=== PATIENT | male | born 1970 | race Caucasian/White ===

== ENCOUNTER 2017-11-23 09:41 | Inpatient (IN) | payer OTHER ==
[2017-11-22 12:08] VITALS: BMI 32.1
[2017-11-23] MEDS ORDERED: Levofloxacin 500 mg/D5W 100 ml Premix Bag ONE (09:57)
[2017-11-23] MEDS ORDERED: Clindamycin/D5W 900 mg/50 ml Premix Bag ONE (09:57)
[2017-11-23] MEDS ORDERED: Sodium Chloride 0.9% 10 ML ONE (09:59)
[2017-11-23] MEDS ORDERED: Bacitracin Zinc Ointment 30 gm TUBE ONE (09:59)
[2017-11-23] MEDS ORDERED: Thrombin 5000 UNITS/5 ML VIAL ONE ×2 (09:59→13:33)
[2017-11-23 10:20] LABS: #Basophils 0.1 thou/uL (0.0-0.2); #Eosinphils 0.4 thou/uL (0.0-0.7); #Lymphocytes 2.6 thou/uL (1.20-3.40); #Monocytes 0.8 thou/uL (0.11-0.59); #Neutrophils 4.9 thou/uL (1.40-6.50); %Basophils 1.3 % (0.0-1.0); %Eosinophils 4.2 % (0.0-10.0); %Monocytes 8.6 % (0.0-10.0); %Neutrophils 55.9 % (42.0-75.0); Mean Corpuscular HGB CONC 35.3 g/dL (32.0-36.0); Mean Corpuscular Hemoglobin 33.7 pg (27.0-31.0); Mean Corpuscular Volume 95.3 fL (78.0-98.0); Mean Platelet Volume 7.1 fL (7.4-10.4); Platelet Count 287 thou/uL (130-400); Red Blood Cell (RBC) Count 4.75 mill/uL (4.70-6.10); White Blood Cell (WBC) Count 8.8 thou/uL (4.8-10.8)
[2017-11-23 10:28] LABS: PTT 29.2 SEC (22.9-36.1)
[2017-11-23 10:40] LABS: Anion Gap 13 mmol/L (10-20); BUN (Urea Nitrogen) 9 mg/dL (8.9-20.6); Calc. Creatinine Clearance 140 mL/min (70-130); Calcium 9.2 mg/dL (7.8-10.44); Carbon Dioxide 23 mmol/L (22-29); Chloride 106 mmol/L (98-107); Estimated GFR-MDRD 88; Glucose 96 mg/dL (70-105); Potassium 4.1 mmol/L (3.5-5.1); Sodium 138 mmol/L (136-145)
[2017-11-23] MEDS ORDERED: Fentanyl 100 MCG/2 ML VIAL ONE ×6 (10:52→16:14)
[2017-11-23] MEDS ORDERED: HYDROmorphone 0.5 MG/0.5 ML SYRINGE ONE ×2 (11:07→16:27)
[2017-11-23] MEDS ORDERED: PROPOFOL 200 MG/20 ML VIAL ONE (12:17)
[2017-11-23] MEDS ORDERED: Dexamethasone 20 MG/5 ML VIAL ONE (12:17)
[2017-11-23] MEDS ORDERED: Lidocaine 1% PF 5 ML VIAL ONE (12:17)
[2017-11-23] MEDS ORDERED: Vecuronium 10 MG VIAL ONE ×2 (12:17→13:32)
[2017-11-23] MEDS ORDERED: Ondansetron HCl/PF 4 MG/2 ML Vial ONE (12:17)
[2017-11-23] MEDS ORDERED: Glycopyrrolate 0.2 MG/ML 5 ML SYRINGE ONE (12:17)
[2017-11-23] MEDS ORDERED: ePHEDrine/0.9% NaCl/PF SYRINGE 50 mg/10 ml ONE (12:17)
[2017-11-23] MEDS ORDERED: Milk Of Magnesia 30 ML UDCUP PO PRN (15:04)
[2017-11-23] MEDS ORDERED: Fleet Enema 133 ML BOT PR PRN (15:04)
[2017-11-23] MEDS ORDERED: Promethazine HCl 25 MG/ML VIAL IM PRN ×2 (15:04→15:49)
[2017-11-23] MEDS ORDERED: Acetaminophen/Codeine 30-300mg Tablet PO PRN (15:04)
[2017-11-23] MEDS ORDERED: Bisacodyl 10 MG SUPP PR PRN (15:04)
[2017-11-23] MEDS ORDERED: Acetaminophen 325 MG TAB PO PRN (15:04)
[2017-11-23] MEDS ORDERED: Promethazine HCl 25 MG/ML VIAL SLOW IVP PRN (15:49)
[2017-11-23] MEDS ORDERED: Ondansetron HCl/PF 4 MG/2 ML Vial IVP PRN (15:49)
[2017-11-23] MEDS: tiZANidine HCl 4 MG TAB PO PRN (17:51)
[2017-11-23] MEDS: HYDROcodone/Acetaminophen 7.5/325 mg Tablet PO PRN ×2 (17:52→22:36)
[2017-11-23] MEDS: Clindamycin/D5W 900 MG in Premix Bag 1 BAG IVPB SCH (19:14)
[2017-11-23] MEDS: Sodium Chloride 0.9% 1,000 ML IV SCH (19:36)
[2017-11-23] MEDS ORDERED: Nortriptyline 10 MG CAP PO SCH (21:00)
[2017-11-23] MEDS: traMADol HCl 50 MG TAB PO PRN (21:17)
--- NOTE | 2017-11-23 21:18 | OP ---
SURGEON: Akbar Oconnor M.D. VENDOR REPRESENTATIVES: Jus Sparks PA-C OR: 12. WOUND: Type 1 wound. PREPROCEDURE DIAGNOSES: L5-S1 spondylolisthesis with L5 spondylolysis, bilateral L5 radiculopathy. POSTPROCEDURE DIAGNOSES: L5-S1 spondylolisthesis with L5 spondylolysis, bilateral L5 radiculopathy. PROCEDURE: 1. L5-S1 laminectomy for decompression of the common dural tube and the L5 and S1 nerve roots bilate rally. 2. Interbody fusion with left-sided facetectomy for diskectomy and placement of an interbody spacer packed with graft and BMP (transforaminal interbody fusion). 3. Placement of screw katelyn fixation L5-S1 bilaterally. 4. Posterior lateral fusion, right side L5-S1 posterolaterally for lumbar spine fusion. PROCEDURE IN DETAIL: After informed consent was obtained from the patient, the patient brought to OR 12. Proper patient pause and indications carried out. He was placed under excellent general endotr acheal anesthesia and positioned prone on the OR table. All appropriate points were padded. We iden tified through a midline lumbar incision an approach would allow for L5-S1 exposure. A midline linea r kiki was made following sterile cleansing, preparation and draping and the L5-S1 segments were expo sed and again this L5-S1. A localization film confirmed our area of interest following exposure and L5-S1 laminectomy, partial facetectomy, and foraminotomies were performed. However, in the left side , I did a transforaminal lumbar interbody approach with laminectomy and facetectomy and a diskectomy for preparation of the endplates and interbody spacer appropriate dimension was placed with BMP and g raft and I was satisfied with the correction of her spondylolisthesis. I then turned our attention t o placement of screw katelyn fixation L5-S1 bilaterally. Rods were placed and final tightening occurred, I was satisfied with both gross and radiologic visualization of the construct. Posterolaterally on the right side, the pars and lateral masses were decorticated and BMP and graft was laid out posterol aterally for fusion and posterior lateral segment. Copious irrigation occurred throughout as did max imizing hemostasis. The wound was then closed following the sprinkling of vancomycin powder and plac ement of DuraSeal. DuraSeal was placed mainly to prevent against radiculitis or nerve root inflammat ion. Satisfied the decompression of the common dural tube and the nerve roots. Patient then emerged from anesthesia.
[2017-11-24] MEDS: HYDROcodone/Acetaminophen 7.5/325 mg Tablet PO PRN ×3 (02:38→10:41)
[2017-11-24] MEDS: Clindamycin/D5W 900 MG in Premix Bag 1 BAG IVPB SCH ×2 (02:38→09:15)
[2017-11-24] MEDS: tiZANidine HCl 4 MG TAB PO PRN ×2 (02:59→09:16)
[2017-11-24] MEDS: Sodium Chloride 0.9% 1,000 ML IV SCH (03:50)
[2017-11-24] MEDS: Mag-Al 1200 mg/1200 mg/30 ML UDCUP PO PRN ×3 (04:04→12:23)
[2017-11-24] MEDS: traMADol HCl 50 MG TAB PO PRN (09:19)
[2017-11-24 11:33] VITALS: BP 134/88; TEMP 99
--- NOTE | 2017-11-24 22:53 | DIS ---
Jus Sparks PA-C dictating for Akbar Oconnor MD DATE OF ADMISSION: 11/23/2017 DATE OF DISCHARGE: 11/24/2017 DISCHARGE DIAGNOSES: 1. Low back pain with lumbar radiculopathy. 2. Lumbar spondylolisthesis. 3. Lumbar spinal stenosis. 4. Tobacco abuse. HOSPITAL COURSE: Mr. Jorge A Vargas was admitted on 11/23/2017 to undergo an L5-S1 laminectomy with p osterior lumbar interbody fusion. The patient's surgery was without complication, and he required 1 overnight stay in the surgical unit. The patient, the next morning, met discharge criteria. At the time of discharge, he did have some incisional back pain, but significant improvement in the bilatera l lower extremity symptoms. He was given an LSO brace to wear when out of bed. He was pleased with his outcome postoperatively and appropriate outpatient followup appointments and education were provi ded to the patient. We also discussed smoking cessation. He understands to follow up on as schedule d in our outpatient clinic.
== END 2017-11-24 13:06 | disposition home or self-care (01) | DRG 460 ==
LOC: SDC 09:41 → EEVIPCON 09:41 → SJJU 17:08
PROVIDERS: ADMIT Surgery; ATTEND Surgery
PROC: 0SG30J1 Fusion of Lumbosacral Joint with Synthetic Substitute, Posterior Approach, Posterior Column, Open Approach (ICD-10-PCS; principal; 2017-11-23)
PROC: 3E0U0GB Introduction of Recombinant Bone Morphogenetic Protein into Joints, Open Approach (ICD-10-PCS; 2017-11-23)
DX: M43.16 Spondylolisthesis, lumbar region (principal); M54.16 Radiculopathy, lumbar region; M43.17 Spondylolisthesis, lumbosacral region; M43.06 Spondylolysis, lumbar region; F17.210 Nicotine dependence, cigarettes, uncomplicated
CPT/HCPCS: 36415; 76001; 80048; 85025; 85610; 85730; 93005; 93010; A4216; C1713; J1100; J1170; J1956; J2001; J2270; J2405; J2704; J3010; J3370; J3490

== ENCOUNTER 2017-12-31 09:29 | Outpatient (CLI) | payer OTHER ==
--- NOTE | 2017-12-31 10:41 | RAD ---
LUMBAR SPINE 3 VIEWS: HISTORY: M54.16, lumbar radiculopathy. COMPARISON: None. FINDINGS: AP and lateral standing radiographs were submitted for interpretation. Prior posterior spinal fusion hardware L5-S1 laminectomy changes. Anterolisthesis of L5 over S1 approximately 5 mm. No retropuls ion of the disk spacer. Moderate narrowing at L4-5 disk space. IMPRESSION: Postoperative changes and anterolisthesis. POS: [facility]
== END 2017-12-31 09:30 | disposition home or self-care (01) ==
LOC: TBSIIMAG 09:29
PROVIDERS: ATTEND Surgery
DX: M54.16 Radiculopathy, lumbar region (principal); M43.16 Spondylolisthesis, lumbar region; Z98.890 Other specified postprocedural states
CPT/HCPCS: 72100

== ENCOUNTER 2018-02-09 13:16 | Outpatient (CLI) | payer OTHER ==
--- NOTE | 2018-02-09 15:17 | RAD ---
LUMBAR SPINE THREE VIEWS: History: M54.16 lumbar radiculopathy. Left leg and foot pain. Comparison: 12-31-17 FINDINGS: Similar appearance to the posterior spinal fusion and discectomy changes at L5-S1. Anterolisthesis is similar. There is subtle anterior migration of the disc spacer at L5-S1, similar. NO acute displaced fracture or malalignment. Hypertrophic degenerative changes of the pubic symphysis . IMPRESSION: 1. Mild changes around posterior spinal fusion hardware at L5-S1. POS: [facility]
== END 2018-02-09 13:17 | disposition home or self-care (01) ==
LOC: TBSIIMAG 13:16
PROVIDERS: ATTEND Surgery
DX: M54.16 Radiculopathy, lumbar region (principal); Z98.1 Arthrodesis status
CPT/HCPCS: 72100

== ENCOUNTER 2022-01-22 11:20 | Outpatient (CLI) | payer BC | END 2022-01-22 11:21 | disposition home or self-care (01) | LOC: SCSMRI 11:20 | PROVIDERS: ATTEND Nurse Practitioner Family | DX: M54.2 Cervicalgia (principal); G89.29 Other chronic pain; G43.109 Migraine with aura, not intractable, without status migrainosus; M47.812 Spondylosis without myelopathy or radiculopathy, cervical region | CPT/HCPCS: 70551; 72141 ==